=== PATIENT | male | born 1970 | race Two or more races ===

== ENCOUNTER 2019-04-23 11:40 | Emergency (ER) | payer MEDICAID, OTHER ==
[~2019-04-23] VITALS: Ht 170.2 cm; Wt 81.6 kg
[2019-04-23 12:45] LABS: Basophils # (auto) 0 uL; Basophils % (auto) 0.8 % (0.0-2.0); Eosinophils # (auto) 0.2 uL; Hematocrit 41.8 % (41.0-53.0); Hemoglobin 14.3 g/dL (13.5-17.5); Lymphocytes # (auto) 1.7 uL; Lymphocytes % (auto) 31.3 % (10.0-50.0); Mean Corpuscular Hemoglobin 29.3 pg (28.0-32.0); Mean Corpuscular Hgb Conc. 34.3 g/dL (32.0-36.0); Mean Corpuscular Volume 85.3 fL (80.0-100.0); Monocytes # (auto) 0.4 uL; Monocytes % (auto) 8.1 % (0.0-12.0); Neutrophils # (auto) 3.1 uL; Neutrophils % (auto) 55.8 % (37.0-80.0); Nucleated Red Blood Cells % 0.1 %; Platelet Count (auto) 218 10^3/uL (140-450); White Blood Cell 5.5 10^3/uL (4.4-10.8)
[2019-04-23] MEDS ORDERED: ASPirin 81 mg TAB PO ONE (12:45)
[2019-04-23 12:54] LABS: Albumin 3.5 g/dL (3.4-5.0); Anion Gap 5 (5-15); BUN/Creatinine Ratio 16.4; Blood Urea Nitrogen 19 mg/dL (7-18); Calcium 8.8 mg/dL (8.5-10.1); Carbon Dioxide 27 mmol/L (21-32); Chloride 112 mmol/L (98-107); GFR African American 86 mL/min; GFR Non-African American 71 mL/min; Glucose 106 mg/dL (74-106); Magnesium 2.2 mg/dL (1.6-2.6); Potassium 3.9 mmol/L (3.5-5.1); Sodium 144 mmol/L (136-145)
[2019-04-23 12:59] LABS: Alanine Aminotransferase 42 U/L (16-61); Alkaline Phosphatase 100 U/L (45-117); Aspartate Aminotransferase 13 U/L (15-37); Bilirubin, Total 0.4 mg/dL (0.2-1.0)
[2019-04-23 14:37] VITALS: BP 136/98
== END 2019-04-23 14:40 | disposition home or self-care (01) ==
LOC: ER 11:40
DX: R20.2 Paresthesia of skin (principal)
CPT/HCPCS: 36415; 70450; 71046; 80053; 83735; 84484; 85025; 93005

== ENCOUNTER 2021-04-22 22:43 | Emergency (ER) | payer SELFPAY ==
[~2021-04-22] VITALS: Ht 165.1 cm; Wt 86.2 kg
[2021-04-22 22:50] VITALS: BP 159/90
== END 2021-04-23 00:22 | disposition left against medical advice (07) ==
LOC: ER 22:43
DX: R10.9 Unspecified abdominal pain (principal); R11.10 Vomiting, unspecified; Z53.21 Procedure and treatment not carried out due to patient leaving prior to being seen by health care provider